=== PATIENT | male | born 1975 ===

== ENCOUNTER 2023-01-27 07:42 | Day surgery (SDC) | payer OTHER ==
[2022-12-21 15:04] VITALS: BMI 26.9
[2023-01-27] MEDS ORDERED: PROPOFOL 0 ML ONE (08:55)
[2023-01-27] MEDS ORDERED: PROPOFOL 20 ML ONE (09:07)
[2023-01-27] MEDS ORDERED: PROPOFOL 40 ML ONE (09:30)
== END 2023-01-27 10:18 | disposition home or self-care (01) ==
LOC: EDBD → CSHSDC 07:42
PROVIDERS: ATTEND Internal Medicine Gastroenterology
PROC: 0DJD8ZZ Inspection of Lower Intestinal Tract, Via Natural or Artificial Opening Endoscopic (ICD-10-PCS; principal; 2023-01-27)
DX: Z12.11 Encounter for screening for malignant neoplasm of colon (principal); K57.30 Diverticulosis of large intestine without perforation or abscess without bleeding; K64.9 Unspecified hemorrhoids; F10.90 Alcohol use, unspecified, uncomplicated; B18.2 Chronic viral hepatitis C; K62.5 Hemorrhage of anus and rectum; Z88.5 Allergy status to narcotic agent
CPT/HCPCS: J2704